=== PATIENT | female | born 1990 | race Asian ===

== ENCOUNTER 2024-06-19 13:34 | Emergency (ER) | payer BC ==
[~2024-06-19] VITALS: Ht 160 cm; Wt 49.4 kg
[2024-06-19] MEDS ORDERED: CHILDREN'S ASPI81 MG PO (14:35)
[2024-06-19] MEDS ORDERED: XARELTO15 M1 PO (14:36)
[2024-06-19] MEDS ORDERED: ROSUVASTATIN CA10 MG PO (14:36)
[2024-06-19] MEDS ORDERED: TOPROL XL25 M1 PO (14:36)
[2024-06-19] MEDS ORDERED: PEPCID AC20 MG PO (14:47)
[2024-06-19] MEDS ORDERED: BACTRIM DS TAB1 EACH PO (14:47)
[2024-06-19] MEDS ORDERED: PYRIDIUM DS200 MG PO (14:47)
== END 2024-06-19 15:07 | disposition home or self-care (01) ==
LOC: ER 13:35
DX: N39.0 Urinary tract infection, site not specified (principal)